=== PATIENT | female | born 1975 | race Caucasian/White ===

== ENCOUNTER → 2021-01-31 | Outpatient (CLI) | payer OTHER ==
[~2021-01-31] MED LIST: ALDOMET250 MG PO; ALLOPURINOL 10100 M2 PO; AMLODIPINE BESY10 MG PO; GLUCOPHAGE500 MG PO; LEVOTHYROXIN0.088 MG PO; OXYCODONE HCL 55 MG PO; PREDNISONE 10 M10 M1 PO; TRANSDERM-SCO1 PATC1 TD
== END ==
LOC: M.NUC 06:51
PROVIDERS: ATTEND Surgery
DX: K76.89 Other specified diseases of liver (principal)